=== PATIENT | male | born 1960 | race Caucasian/White ===

== ENCOUNTER 2023-05-12 20:56 | Emergency (ER) | payer OTHER, SELFPAY ==
[2023-05-12 20:56] VITALS: BMI 27.5
[2023-05-12 21:01] VITALS: BP 114/74
[2023-05-12 22:49] VITALS: BP 134/89
[2023-05-12 23:00] VITALS: BP 136/83
--- NOTE | 2023-05-12 23:31 | ED.GENMED ---
History of Present Illness
General
Chief Complaint: Abdominal Pain
Source: patient
Exam Limitations: none
Time Seen by Provider: 05/12/23 23:04
Travel History
Have you had any contact with someone who has COVID-19?: No
Do you have any symptoms of coronavirus? Fever > 100 degrees, chills, cough, shortness of breath, sore throat, loss of taste or smell, muscle aches, or headache?: No
History of Present Illness
History of Present Illness:
This is a 62 year old male that comes in with c/o abd pain. States that a week ago he felt like he was getting a cold. States that he took NyQuil and Advil cold and the next day he felt better. However, he started with some abd discomfort. States
that this was on Thu. On Thursday he went to see the PCP and he was feeling some better so they decided to wait it out. States that no he feels like there is a tennis ball in his abd, he has no appetite and he has abd discomfort. States that he is
nauseated and lightheaded. Denies any fever, chills, chest pain, SOB, vomiting, diarrhea, headache, urinary burning.
Past History
Past History
ED Past Medical History: None; Negative Asthma, HTN, Hypercholesterolemia or NIDDM
ED Past Surgical History: None
Social History
Tobacco: Non-smoker
Alcohol: Occasional
Drug: None
Personal: Single
Living: with family
Review of Systems
Review of Systems
All Other Systems: ROS reviewed and negative except as documented in HPI and ROS
Constitutional: Reports no symptoms; Denies fever or chills
EENT: Reports no symptoms
Respiratory: Reports no symptoms; Denies cough or trouble breathing
Cardiac: Reports no symptoms; Denies chest pain
ABD/GI: Reports abdominal pain and nausea; Denies vomiting or diarrhea
: Reports no symptoms; Denies dysuria, frequency or urgency
Musculoskeletal: Reports no symptoms
Skin: Reports no symptoms
Neurological: Reports other (Lightheaded); Denies headache
Psychiatric: Reports no symptoms
Phy Exam
General Physical Exam
General Presentation: mild distress
General age: appears stated age
General Skin: warm and dry
General Habitus: normal
General Mental: alert
General Hydration: dry mucous membranes
ENT Exam
ENT Exam: TM's normal, pharynx normal and neck supple
Eye Exam
Eye Exam: EOMI
Cardiovascular Exam
Cardiovascular Exam: regular rate/rhythm, no edema, no murmur and normal peripheral pulses
Pulmonary Exam
Pulmonary Exam: lungs clear, no respiratory distress, no rales, chest non tender, no crackles, no rhonchi, no wheezing and no cough
Gastrointestinal Exam
Gastrointestinal Exam: soft, no organomegaly, no pulsatile mass, non distended, tender (Generalized tenderness with palpation) and other (Hypoactive bowel sounds)
Musculoskeletal Exam
Musculoskeletal Exam: full ROM and no edema
Skin Exam
Skin Exam: normal color, warm/dry, no rash and no petechia
Psychiatric Exam
Psychiatric Exam: normal mood/affect
Course
Orders/Labs/Results
Orders:
Orders
05/12/23 23:01
IV Insert/Care/Rem.- Treatment PRN
05/12/23 23:11
Complete Blood Count/With Diff Urgent
Comprehensive Metabolic Panel Urgent
Lipase Urgent
05/12/23 23:30
0.9% Sodium Chloride 1000 ml [Nss] 1,000 ml IV BOLUS
Ketorolac [Toradol] 30 mg IV NOW STA
Ondansetron Injectable [Zofran] 4 mg IV NOW STA
05/13/23 00:15
CT Abd/pelvis W Iv Cont Urgent
Reason For Exam: gENERALIZED ABD PAIN
Abnormal Lab Results
05/12/23
23:11
WBC 13.2 H 10^3/uL
(4.8-10.8)
RBC 4.19 L 10^6/uL
(4.70-6.10)
Hgb 12.9 L g/dL
(13.0-18.0)
Hct 37.2 L %
(39.0-52.0)
Abs Immat Gran (auto) 0.1 H 10^3/uL
(0-0.05)
Absolute Neuts (auto) 8.1 H 10^3/uL
(1.4-6.5)
Absolute Monos (auto) 2.0 H 10^3/uL
(0.1-0.6)
Monocytes % 14.8 H %
(1.7-9.3)
Sodium 134 L mmol/L
(135-145)
Total Bilirubin 1.5 H mg/dl
(0.2-1.3)
05/12/23 23:11
05/12/23 23:11
Leukocytosis, H/h slightly low. Total elizabeth slightly elevated. Lipase normal at 197
Vital Signs
Initial and Last Documented VS:
Initial Vital Signs
Temp Pulse Resp BP Pulse Ox
98.7 F 86 18 114/74 100
05/12/23 21:01 05/12/23 21:01 05/12/23 21:01 05/12/23 21:05/12/23 21:01
Last Documented Vital Signs
Temp Pulse Resp BP Pulse Ox
98.7 F 86 18 124/73 97
05/12/23 21:01 05/12/23 21:01 05/12/23 21:01 05/13/23 00:00 05/13/23 00:00
MDM/Problems Addressed
Differential Diagnosis Includes:
Bowel obstruction, Diverticulitis, Enteritis
MDM/Problems Addressed:
This is a 62 year old male that comes in with c/o abd pain. States that this started on Thursday and he has seen the PCP. States that his pain got worse so he came in.
Will check labs and get CT scan, IV fluids and medicate for pain and nausea.
Back into see patient. Explained that his lipase is normal and her CT shows that this is most likely a duodenitis. Will place patient on Protonix and Carafate. Patient to follow up with the family doctor. Patient states at this time he is feeling
hungry and may stop at [facility] for food. Return with increased pain, fever or vomiting.
Chronic conditions affecting care:
NA
Acute Exacerbation and/or Progression of Chronic Illness:
NA
*Radiology
Radiology exam reviewed: radiology read reviewed (CT night hawk- Stranding surrounding the pancreatic head and duodenum, may represent acute pancreatitis versus duodenitis. No evidence of pseudocyst formation. Cholelithiasis without evidence of
cholecystitis. No bowel obstruction. Normal appendix. Incidentals: Moderate stool burden. No ) and all reviewed NAD by ED Provider (CT cont- no obstructive uropathy. No hepatic or pancreatic mass. no abdominal aortic aneurysm. No acute osseous
abnormality. No acute abnormality within the visualized lungs. Bibasilar atelectasis. Calcified coronary atherosclerosis. No acute abnormality within the visualized soft tissue. )
*Pulse Oximetry
Patient hypoxic: no
*EKG
Interpreted by ED Provider?: NA
Rate: EKG- N/A
*Environmental Quality Analyst Interpretation
Rate: Environmental Quality Analyst- N/A
*Critical Care Note
Total Time (30-74mins, 75-104mins- exclusive of procedures): Not Applicable
ED Attending Note
-
Portions of this chart may have been created with voice recognition software.� Occasional wrong word or��sound alike� substitutions may have occurred due to the inherent limitations of voice recognition software.
Discharge Plan
Departure
Patient Disposition: Home (Routine Discharge)
Date of Disposition: 05/13/23
Time of Disposition: 01:07
Patient with high blood pressure during this ER visit?: No
Condition: Good
Covid-19: Not Applicable
Discharge Problem:
Abdominal pain, Duodenitis
Instructions: Abdominal Pain
Prescriptions:
New
pantoprazole [Protonix] 40 mg tablet,delayed release (DR/EC)
40 mg PO DAILY Qty: 10 0RF
sucralfate [Carafate] 1 gram tablet
1 g PO ACHS Qty: 40 0RF
Rx Instructions:
Dissolve in 10ml of water and drink. 30min-1hour before meals and HS
No Action
oxycodone-acetaminophen 5 MG/325 MG tablet
1 tab PO Q6HPRN PRN (Reason: pain) Qty: 12 0RF
penicillin V potassium 500 MG tablet
500 mg PO TID Qty: 29 0RF
prednisone 50 MG tablet
50 mg PO DAILY Qty: 5 0RF
Referrals:
Hebert Napoles DO [Family Provider] - Call in 1-3 days for appt
Activity Restrictions/Additional Instructions:
As discussed, your blood work shows that your white blood cell count is slightly elevated. Your Lipase is normal. Your CT shows that there is no obstruction but a duodenitis. You have had 2 prescription sent to your Pharmacy. The first is for
Protonix that you will take daily. The second is Carafate that you take 30min to 1 hour before meals and again at bedtime. Follow up with the family doctor for recheck. IF YOU HAVE INCREASED OR CHANGING PAIN, FEVER, OR YOU HAVE ANY OTHER CONCERNS
PLEASE RETURN TO THE EMERGENCY ROOM.
Interventions
Interventions:
*Risk Screen - Suicide Last Done: 05/12/23 21:01
*General Assessment Last Done: 05/12/23 23:08
*Neglect/Abuse Screening Last Done: 05/12/23 21:01
ED- Fall Risk Assessment Last Done: 05/12/23 23:08
*ED COVID-19 Vaccine History Last Done: 05/12/23 23:08
TA-Fqolmu-Nyxlbcphaa Assessment Last Done: 05/12/23 23:05
[2023-05-12 23:34] LABS: % Basophils 0.5 % (0-2); % Immature Granulocytes 0.4 % (0-0.5); % Lymphocytes 22.3 % (20.5-51.1); % Monocytes 14.8 % (1.7-9.3); Absolute Basophils 0.1 10^3/uL (0-0.2); Absolute Eosinophils 0.1 10^3/uL (0-0.7); Absolute Immature Granulocytes 0.1 10^3/uL (0-0.05); Absolute Neutrophils 8.1 10^3/uL (1.4-6.5); Hematocrit 37.2 % (39.0-52.0); Hemoglobin 12.9 g/dL (13.0-18.0); Mean Corp Hgb Conc. 34.7 g/dL (33.0-37.0); Mean Corpuscular Hgb 30.8 pg (27.0-31.0); Mean Corpuscular Volume 88.8 fL (80.0-94.0); Mean Platelet Volume 9.9 fL (7.4-10.4); Nucleated Red Blood Cells % 0 % (-); Platelet Count 271 10^3/uL (130-400); Red Blood Cell Count 4.19 10^6/uL (4.70-6.10); Red Cell Dist. Width 11.5 % (11.5-14.5); White Blood Cell Count 13.2 10^3/uL (4.8-10.8)
[2023-05-12 23:55] LABS: ALT (SGPT) 18 U/L (0-50); AST (SGOT) 21 U/L (17-59); Alkaline Phosphatase 80 U/L (38-126); Blood Urea Nitrogen 14 mg/dl (9-20); Calcium 9.2 mg/dl (8.4-10.2); Carbon Dioxide 26 mmol/L (22-30); Chloride 102 mmol/L (98-107); Estimated Creatinine Clearance 114 ml/min; Glucose 96 mg/dl (70-99); Lipase 197 U/L (23-300); Potassium 4.5 mmol/L (3.5-5.1); Sodium 134 mmol/L (135-145); Total Bilirubin 1.5 mg/dl (0.2-1.3); Total Protein 7.4 g/dl (6.3-8.2); eGFR > 60.00
[2023-05-13] VITALS: BP 124/73
[2023-05-13] MEDS: TORADOL 30 MG IV (00:02)
[2023-05-13] MEDS: NSS 1000 IV (00:03)
[2023-05-13 00:38] VITALS: BP 128/70
[2023-05-13 01:00] VITALS: BP 123/72
[2023-05-13] MEDS: PROTONIX IV 40 MG IV (01:13)
[2023-05-13] MEDS: CARAFATE SUSPENSION 1 GM PO (01:13)
== END 2023-05-13 01:24 | disposition home or self-care (01) ==
LOC: EMR 20:56
PROVIDERS: EMERGENCY PHYSICIAN Student in an Organized Health Care Education/Training Program; FAMILY PHYSICIAN Family Medicine
DX: R10.9 Unspecified abdominal pain (principal); R11.0 Nausea; R42 Dizziness and giddiness
CPT/HCPCS: 99284; 96374; 96375; 74177; 80053; 83690; 85025; Q9967